=== PATIENT | female | born 1990 | race American Indian/Alaskan Native ===

== ENCOUNTER 2017-12-17 12:53 | Emergency (ER) | payer SELFPAY ==
[2017-12-17] MEDS ORDERED: NACL 0.9% 1000 ML 1,000 ML IV ONE (13:03)
[2017-12-17 13:26] LABS: Basophils # (Auto) 0.1 K/mm3 (0.0-0.1); Basophils % (Auto) 0.4 % (0.0-1.8); Eosinophils % (Auto) 0.2 % (0.0-4.3); Hematocrit 36.2 % (30.3-42.9); Hemoglobin 11.6 gm/dl (10.1-14.3); Lymphocytes # (Auto) 1.7 K/mm3 (1.2-5.4); Lymphocytes % (Auto) 11.3 % (13.4-35.0); Mean Corpuscular HGB Conc 32 % (30-34); Mean Corpuscular Hemoglobin 27 pg (28-32); Mean Corpuscular Volume 83 fl (79-97); Monocytes % (Auto) 6.6 % (0.0-7.3); Platelet Count 281 K/mm3 (140-440); Red Blood Count 4.34 M/mm3 (3.65-5.03); Red Cell Distribution Width 14.9 % (13.2-15.2)
[2017-12-17 13:44] LABS: Albumin 4.1 g/dL (3.9-5); Calcium 9.5 mg/dL (8.4-10.2)
[2017-12-17 14:08] LABS: Bilirubin,Urine NEG (Negative); Blood,Urine LG (Negative); Color,Urine Yellow (Yellow); Mucus,Urine 3+ /HPF; Urobilinogen,Urine < 2.0 mg/dL (<2.0)
[2017-12-17 14:09] LABS: RBC,Urine > 182.0 /HPF (0.0-6.0)
[2017-12-17] MEDS ORDERED: MORPHINE IV ONE ×2 (14:09→17:33)
--- NOTE | 2017-12-17 14:31 | Emergency Department Report ---
HPI - General Chief Complaint: Abdominal Pain Time Seen by Provider: 12/17/17 13:52 - HPI HPI: 27-year-old female presents to the emergency department, driving herself and to be seen, with complaint of pelvic pain and cramping, nausea and vomiting and bleeding from both the vagina and the rectum that has been going on since last night. Patient says she has been constipated but when she goes to urinate she feels like blood is coming out of both of those areas. She denies any past medical history. She has not taken anything for her symptoms prior to presentation. She has a primary care physician, Dr Tinoco, and a [employer] through [employer]. No recent travel or sick contacts at home. ED Past Medical Hx - Past Medical History Hx Hypertension: No Hx Heart Attack/AMI: No Hx GERD: Yes Hx Liver Disease: No Hx Renal Disease: No Hx Sickle Cell Disease: No Hx Seizures: No Additional medical history: herpes - Surgical History Past Surgical History?: No Hx Cholecystectomy: Yes - Social History Smoking Status: Never Smoker Substance Use Type: None - Medications Home Medications: Home Medications Medication Instructions Recorded Confirmed Last Taken Type HYDROcodone/APAP 5-325 [[place] 1 each PO Q6HR PRN #12 tablet 12/17/17 Unknown Rx 5/325] Sulfamethoxazole/Trimethoprim 1 each PO BID #14 tablet 12/17/17 Unknown Rx [Bactrim DS TAB] Tamsulosin HCl [Flomax] 0.4 mg PO QDAY #4 cap.er.24h 12/17/17 Unknown Rx ED Review of Systems ROS: Stated complaint: BLEEDING FROM VAG/ANAL/DEHYDRATED Other details as noted in HPI Comment: All other systems reviewed and negative Constitutional: denies: chills, fever Eyes: denies: eye pain, eye discharge, vision change ENT: denies: ear pain, throat pain Respiratory: denies: cough, shortness of breath, wheezing Cardiovascular: denies: chest pain, palpitations Gastrointestinal: nausea, vomiting Genitourinary: other (vaginal and rectal bleeding, pelvic pain). denies: dysuria, discharge Musculoskeletal: denies: back pain, joint swelling, arthralgia Skin: denies: rash, lesions Neurological: denies: headache, weakness, paresthesias Physical Exam - Physical Exam Vital Signs: Vital Signs 12/17/17 13:00 Temperature 97.8 F Pulse Rate 82 Respiratory 18 Rate Blood Pressure 108/73 O2 Sat by Pulse 98 Oximetry Physical Exam: GENERAL: The patient is well-developed well-nourished. HENT: Normocephalic. Atraumatic. Patient has moist mucous membranes. EYES: Extraocular motions are intact. Pupils equal reactive to light bilaterally. NECK: Supple. Trachea is midline. CHEST/LUNGS: Clear to auscultation. There is no respiratory distress noted. HEART/CARDIOVASCULAR: Regular. There is no tachycardia. There is no murmur. ABDOMEN: Abdomen is soft. There is some lower abdominal and pelvic tenderness to palpation. No guarding. Patient has normal bowel sounds. There is no abdominal distention. SKIN: Skin is warm and dry. NEURO: The patient is awake, alert, and oriented. The patient is cooperative. The patient has no focal neurologic deficits. The patient has normal speech. MUSCULOSKELETAL: There is no tenderness or deformity. There is no limitation range of motion. There is no evidence of acute injury. RECTAL: There is no visible hemorrhoid or mass or lesions. No gross blood. Stool is positive on guaiac testing. ED Course Vital Signs 12/17/17 13:00 Temperature 97.8 F Pulse Rate 82 Respiratory 18 Rate Blood Pressure 108/73 O2 Sat by Pulse 98 Oximetry - Reevaluation(s) Reevaluation #1: 12/18/17 10:00 Rectal evaluation/exam was done with nurse, Pankaj, at bedside. ED Medical Decision Making - Lab Data Result diagrams: 12/17/17 13:15 12/17/17 13:15 - Radiology Data Radiology results: report reviewed, image reviewed interpreted by me: Abdominal x-ray shows nonspecific nonobstructive bowel gas. EXAM: US TRANSVAGINAL HISTORY: pelvic pain TECHNIQUE: Ultrasound evaluation of the pelvis using TRANSVAGINAL technique PRIORS: Transabdominal pelvic ultrasound 12/17/2017 FINDINGS: Technologist reports examination limited due to body habitus Uterus size and shape are normal, 8.2 X 3.5 X 4.7 cm. No evidence of uterine mass. scar noted anteriorly. The endometrium is homogenous. Endometrial thickness is 6.3mm. There is nonspecific minimal cul-de-sac free fluid. This may be physiologic since it is not visualized with transabdominal technique. Normal ovarian size. No evidence of solid ovarian mass. Ovarian/adnexal blood flow is present. The adnexa are normal. Right ovary: 4.1 X 4.0 X 3.4 cm Left ovary: 4.3 X 3.1 X 2.8 cm 2.3 cm likely dominant follicle in right ovary. IMPRESSION: Nonspecific minimal cul-de-sac free fluid may be physiologic since it is not visualized with transabdominal technique Transcribed By: MARLYN Dictated By: LORENA AYALA MD Electronically Authenticated By: LORENA AYALA MD Signed Date/Time: 12/17/17 4293 PROCEDURE: CT abdomen and pelvis without contrast. TECHNIQUE: Computerized axial tomography of the abdomen and pelvis was performed without intravenous contrast. This study is performed without intravascular contrast material and its sensitivity for abdominal and pelvic pathology, including neoplasms, inflammation, abscess, free fluid, thrombosis, arterial dissection and infarction, is reduced compared with a contrast enhanced study. HISTORY: Abdominal pain. COMPARISON: No prior studies are available for comparison. FINDINGS: The lung bases are clear. There are no pleural effusions. The heart size is normal. The liver, pancreas and spleen are grossly normal. Cholecystectomy clips are present. There is no biliary dilatation. The adrenal glands are not enlarged. The right kidney appears normal in size and configuration. There are 2 small nonobstructing calculi in the right kidney. The largest is in the lower pole measuring 4.3 millimeters. The left kidney is enlarged and there is moderate hydronephrosis and fairly severe hydroureter. There are 3 small nonobstructing calculi in the left kidney. The largest is in the lower pole measuring 3.9 millimeters. There are 2 obstructing calculi in the distal left ureter. These are located approximately 1 centimeter proximal to the ureterovesical junction. The largest calculus measures 5.5 millimeters by 4.5 millimeters in cross-section. Referral to a urologist may be necessary. The abdominal aorta has a normal caliber. There is no retroperitoneal adenopathy. The unopacified gastrointestinal tract is unremarkable. A normal appendix is visible. The bladder, uterus and adnexal regions are unremarkable. There is a tiny amount of free fluid in the cul-de-sac. The regional skeleton appears intact. There is a small osteophyte arising from the lateral margin of the left acetabulum. There is a free surgical clip in the pelvis, superior to the bladder. There is a piercing of the labia majora. IMPRESSION: Moderately severe left hydronephrosis and severe left hydroureter. Two obstructing calculi in the distal left ureter. Additional small nonobstructing bilateral renal calculi. Previous cholecystectomy. Transcribed By: WES Dictated By: DENIA SAMUEL MD Electronically Authenticated By: DENIA SAMUEL MD Signed Date/Time: 12/17/171954 - Medical Decision Making Patient presents with some nausea, vomiting, pelvic pain as well as concern for bleeding from the vagina and rectum since last night. Patient's labs have been unremarkable other than a mild to moderate urinary tract infection. GFR is 59. A transvaginal ultrasound was done that showed a very small amount of pelvic fluid that could be physiologic. Otherwise no etiology found. A CT scan of the abdomen and pelvis was done that shows moderate to severe left hydronephrosis and hydroureter with 2 obstructing calculi, the largest being about 4.5 mm. Patient's vital signs were stable throughout her ED course including being afebrile. She is not had any nausea and vomiting since being in the emergency department. Patient was started on some antibiotics for the urinary tract infection. I had a long conversation with the patient regarding her lab and imaging results. She understands that there is a good chance that she will be able to pass the stones due to their size. However she understands that it is very important to follow-up with the urologist as soon as possible but that she should return to the emergency department immediately with any return of her vomiting, development of fever, inability to urinate or worsening of her discomfort, which at this point has improved. She will be placed on Flomax, antibiotics, given pain medication and a urinary strainer. Patient says that she understands and agrees to the plan. The patient has had no difficulty urinating this far. She is not . Regarding the patient's rectal bleeding, no etiology was seen on the CT scan examination. There was no gross blood seen but there was some mild stool positive on guaiac testing. The patient was also given a referral for gastroenterology and understands that she may need a colonoscopy in the near future. - Differential Diagnosis fibroids, ovarian torsion, hemorrhoids, nephrolithiasis Critical Care Time: No Critical care attestation.: If time is entered above; I have spent that time in minutes in the direct care of this critically ill patient, excluding procedure time. ED Disposition Clinical Impression: Kidney stones, Pelvic pain, Rectal bleeding UTI (urinary tract infection) Qualifiers: Urinary tract infection type: acute cystitis Hematuria presence: with hematuria Qualified Code(s): N30.01 - Acute cystitis with hematuria Disposition: TO HOME OR SELFCARE Is pt being admited?: No Condition: Stable Instructions: Rectal Bleeding (ED), Kidney Stones (ED), Urinary Tract Infection in Women (ED), Renal Colic (ED), Acute Hematuria (ED), How to Strain Your Urine (ED) Additional Instructions: Please follow up with a primary care physician in the next few days. I am giving you a referral for a local urologist, Dr. Gonzalez, to follow up regarding your kidney stones. Take the medications as prescribed. Strain your urine. Return to the emergency department with any worsening of your symptoms, inability to urinate, development of fever, prolonged pain, intractable vomiting , or if any acute distress. I am giving him a referral for a local dexigraph operator, Dr. Mcarthur, to follow up regarding your rectal bleeding. You may need a colonoscopy in the near future. You have been prescribed a medication that is sedating and therefore should not be taken prior to driving, working, and responsible for children and in no way should be mixed with alcohol of any quantity. Prescriptions: HYDROcodone/APAP 5-325 [[place] 5/325] 1 each PO Q6HR PRN #12 tablet PRN Reason: Pain Sulfamethoxazole/Trimethoprim [Bactrim DS TAB] 1 each PO BID #14 tablet Tamsulosin HCl [Flomax] 0.4 mg PO QDAY #4 cap.er.24h Referrals: DIANN GONZALEZ MD [Staff Physician] - 2-3 Days CRESCENCIO MCARTHUR MD [Staff Physician] - 2-3 Days PRIMARY CARE, [Primary Care Provider] - 2-3 Days MAKENNA CORLEY MD [Staff Physician] - 2-3 Days Time of Disposition: 20:24
--- NOTE | 2017-12-17 15:15 | XRay Report ---
ABDOMEN, 2 views: History: Abdominal pain. There is no evidence of free air beneath the diaphragms. The gas pattern within the abdomen is unremarkable. There is no evidence of bowel dilatation, significant air-fluid levels, or pathologic calcifications. Organ shadows are unremarkable. Cholecystectomy changes are noted. IMPRESSION: Unremarkable abdomen.
[2017-12-17 15:26] VITALS: BP 118/69
[2017-12-17] MEDS ORDERED: ROCEPHIN/NS 1 GM/50 ML 1 GM/50 ML BAG IV ONE (15:45)
--- NOTE | 2017-12-17 17:47 | Ultrasound Report ---
FINAL REPORT EXAM: US PELVIS TRANSABDOMINAL DUPLEX DOPPLER COMP PELVIC ULTRASOUND, OVARIAN VASCULAR DUPLEX DOPPLER ASSESSMENT HISTORY: pelvic pain TECHNIQUE: PELVIC ULTRASOUND using TRANSABDOMINAL technique PELVIC ULTRASOUND, OVARIAN VASCULAR DUPLEX DOPPLER ASSESSMENT PRIORS: ENDOVAGINAL PELVIC ULTRASOUND 12/17/2017 FINDINGS: PELVIC ULTRASOUND: Technologist reports examination limited due to body habitus Uterus size and shape are normal, 8.2 X 3.5 X 4.7 cm. No evidence of uterine mass. The endometrium is homogenous. Endometrial thickness is 6.3mm. There is nonspecific minimal cul-de-sac free fluid. This may be physiologic since it is not visualized with transabdominal technique. Normal ovarian size. No evidence of solid ovarian mass. Ovarian/adnexal blood flow is present. The adnexa are normal. Right ovary: 4.1 X 4.0 X 3.4 cm Left ovary: 4.3 X 3.1 X 2.8 cm 2.3 cm likely dominant follicle in right ovary. OVARIAN VASCULAR DOPPLER ASSESSMENT: There are normal ovarian color Doppler and duplex waveforms bilaterally. No sonographic evidence of ovarian torsion. IMPRESSION: Minimal cul-de-sac free fluid may be physiologic since it is not visualized with transabdominal technique Ovarian vascular assessment is within normal limits
--- NOTE | 2017-12-17 17:49 | Ultrasound Report ---
FINAL REPORT EXAM: US TRANSVAGINAL HISTORY: pelvic pain TECHNIQUE: Ultrasound evaluation of the pelvis using TRANSVAGINAL technique PRIORS: Transabdominal pelvic ultrasound 12/17/2017 FINDINGS: Technologist reports examination limited due to body habitus Uterus size and shape are normal, 8.2 X 3.5 X 4.7 cm. No evidence of uterine mass. scar noted anteriorly. The endometrium is homogenous. Endometrial thickness is 6.3mm. There is nonspecific minimal cul-de-sac free fluid. This may be physiologic since it is not visualized with transabdominal technique. Normal ovarian size. No evidence of solid ovarian mass. Ovarian/adnexal blood flow is present. The adnexa are normal. Right ovary: 4.1 X 4.0 X 3.4 cm Left ovary: 4.3 X 3.1 X 2.8 cm 2.3 cm likely dominant follicle in right ovary. IMPRESSION: Nonspecific minimal cul-de-sac free fluid may be physiologic since it is not visualized with transabdominal technique
--- NOTE | 2017-12-17 19:56 | Cat Scan Report ---
FINAL REPORT PROCEDURE: CT abdomen and pelvis without contrast. TECHNIQUE: Computerized axial tomography of the abdomen and pelvis was performed without intravenous contrast. This study is performed without intravascular contrast material and its sensitivity for abdominal and pelvic pathology, including neoplasms, inflammation, abscess, free fluid, thrombosis, arterial dissection and infarction, is reduced compared with a contrast enhanced study. HISTORY: Abdominal pain. COMPARISON: No prior studies are available for comparison. FINDINGS: The lung bases are clear. There are no pleural effusions. The heart size is normal. The liver, pancreas and spleen are grossly normal. Cholecystectomy clips are present. There is no biliary dilatation. The adrenal glands are not enlarged. The right kidney appears normal in size and configuration. There are 2 small nonobstructing calculi in the right kidney. The largest is in the lower pole measuring 4.3 millimeters. The left kidney is enlarged and there is moderate hydronephrosis and fairly severe hydroureter. There are 3 small nonobstructing calculi in the left kidney. The largest is in the lower pole measuring 3.9 millimeters. There are 2 obstructing calculi in the distal left ureter. These are located approximately 1 centimeter proximal to the ureterovesical junction. The largest calculus measures 5.5 millimeters by 4.5 millimeters in cross-section. Referral to a urologist may be necessary. The abdominal aorta has a normal caliber. There is no retroperitoneal adenopathy. The unopacified gastrointestinal tract is unremarkable. A normal appendix is visible. The bladder, uterus and adnexal regions are unremarkable. There is a tiny amount of free fluid in the cul-de-sac. The regional skeleton appears intact. There is a small osteophyte arising from the lateral margin of the left acetabulum. There is a free surgical clip in the pelvis, superior to the bladder. There is a piercing of the labia majora. IMPRESSION: Moderately severe left hydronephrosis and severe left hydroureter. Two obstructing calculi in the distal left ureter. Additional small nonobstructing bilateral renal calculi. Previous cholecystectomy.
[2017-12-17] MEDS ORDERED: FLOMAX PO ONE (20:24)
== END 2017-12-17 21:27 | disposition home or self-care (01) ==
LOC: ED 12:53
DX: N30.01 Acute cystitis with hematuria (principal); R11.2 Nausea with vomiting, unspecified; K62.5 Hemorrhage of anus and rectum; N20.0 Calculus of kidney; K21.9 Gastro-esophageal reflux disease without esophagitis; Z90.49 Acquired absence of other specified parts of digestive tract
CPT/HCPCS: 36415; 74019; 74176; 76830; 80053; 81001; 84703; 85025; 93975; 96361; 96365; 96375; 96376; 99284; J0696; J2270; J7030